=== PATIENT | female | born 1995 | race African-American/Black ===

== ENCOUNTER 2023-04-05 11:58 | Emergency (ER) | payer MEDICAID, SELFPAY ==
--- NOTE | ~2023-04-05 | US_ITS ---
CORRECTED REPORT examination description change [facility] [place] 04/06/2023 This report was recreated on 04/06/2023. Original report was EXAMINATION: US OB <= 14 weeks fetus w TV DATE: 04/05/2023 14:49 INDICATION: Abdominal pain. TECHNIQUE: Real-time transabdominal and transvaginal pelvic ultrasound was performed. COMPARISON: None. FINDINGS: TRANSABDOMINAL ULTRASOUND: The uterus measures 12.3 x 9.7 x 8.7 cm. TRANSVAGINAL ULTRASOUND: There is an intrauterine gestational sac. The crown rump length measures 6.9 cm, which correlates with an estimated gestational age of 13 weeks and 1 day(s) (+/-) 1 week(s) and 1 day(s). heart motion is identified measuring 147 beats per minute (bpm) by M-mode Doppler. There is a 1.1 cm intramural fibroid. The right ovary is not visualized. The left ovary measures 4.7 x 1.9 x 1.8 cm. There is no free fluid in the pelvis. The cervical length is 3.5 cm, which is normal. IMPRESSION: 1. Single living intrauterine gestation with estimated date of delivery of 10/10/2023. 2. Small uterine fibroid. 3. Right ovary not visualized. Reviewed, dictated and finalized at location A. MTDD IMPRESSION: 1. Single living intrauterine gestation with estimated date of delivery of 10/2023. 2. Small uterine fibroid. 3. Right ovary not visualized.
[2023-04-05 12:42] VITALS: BP 104/66; PULSE 80; RESP 16; TEMP 36.6; O2SAT 99
--- NOTE | 2023-04-05 13:41 | ED.ABDPAIN ---
HPI - Abdominal Pain General Chief Complaint: Abdominal Pain Stated Complaint: 13 weeks preg/abd pain Time Seen by Provider: 04/05/23 12:49 History of Present Illness HPI narrative: 27-year-old female presents with generalized abdominal pain, generalized weakness, and nausea x1 week. Patient currently is 13 weeks and 3 days . Patient denies having baby movement yet. Patient is a G1, P0. Patient denies urinary symptoms or vaginal bleeding. Patient's TOP EXECUTIVE is Dr. Hernandez, [facility]. Onset (ago): week(s) Associated symptoms: nausea Related Data Allergies Allergy/AdvReac Type Severity Reaction Status Date / Time chloroquine Allergy Itching Verified 04/05/23 12:46 Review of Systems Review of Systems: A 10 system review of systems was completed on the patient and is negative except for what is stated in the HPI. Nursing and ancillary documentation was reviewed. Exam Narrative: GENERAL: Well-appearing, well-nourished, and in no acute distress. HEAD: Normocephalic, atraumatic. EYES: PERRLA and EOMI. ENT: Nares clear, no rhinorrhea or epistaxis. Mucous membranes moist. NECK: Supple. CHEST: Clear to auscultation. No respiratory distress. HEART: Regular rate and rhythm. No murmur heard. Normal peripheral pulses. ABDOMEN: Soft, generalized, nondistended, normal active bowel sounds. EXTREMITIES: Normal range of motion. No edema. SKIN: Warm, dry, no rash. NEURO: No focal deficits. Alert and oriented x3. PSYCH: Normal mood and affect. Course Course Emergency Course: We will check all labs and ultrasound. IV fluids and nausea medicine Vital Signs Vital signs: Vital Signs Temperature 36.6 C 04/05/23 12:42 Pulse Rate 80 04/05/23 12:42 Respiratory Rate 16 04/05/23 12:42 Blood Pressure 104/66 04/05/23 12:42 Pulse Oximetry 99 04/05/23 12:42 Temperature 36.6 C 04/05/23 12:42 Pulse Rate 80 04/05/23 12:42 Respiratory Rate 16 04/05/23 12:42 Blood Pressure 104/66 04/05/23 12:42 Pulse Oximetry 99 04/05/23 12:42 MDM - Abdominal Pain MDM Narrative Medical decision making narrative: Labs and ultrasound were negative. Patient feeling better after fluids and Zofran. Will send home on Zofran ODT and close follow-up with TOP EXECUTIVE. Lab Data 04/05/23 13:51 04/05/23 13:51 Labs: Lab Results 04/05/23 04/05/23 Range/Units 13:51 13:51 WBC 8.3 (4.5-10.0) K/mm3 RBC 4.10 L (4.2-5.4) M/mm3 Hgb 11.6 L (12.0-15.0) g/dL Hct 35.3 L (37.0-47.0) % MCV 86.1 (80-100) fl MCH 28.3 (26-34) pg MCHC 32.9 (32-36) g/dl RDW 13.0 (11.5-14.5) % Plt Count 349 (150-375) k/mm3 MPV 10.3 (7.4-10.4) fl Immature Gran % (Auto) 0.5 (0-0.5) % Neut % (Auto) 66.5 (45.5-73.1) % Lymph % (Auto) 21.0 (18.3-44.2) % [place] % (Auto) 7.7 (2.6-8.5) % Eos % (Auto) 3.8 (0-4.4) % Baso % (Auto) 0.5 (0.2-1.2) % Lymph # (Auto) 1.75 (0.9-3.2) K/mm3 [place] # (Auto) 0.6 (0.1-0.6) K/mm3 Eos # (Auto) 0.3 (0-0.3) K/mm3 Baso # (Auto) 0.0 (0.0-0.1) K/mm3 Abs Immat Gran (auto) 0.04 H (0.00-0.031) K/mm3 Absolute Neuts (auto) 5.5 (1.3-6.7) K/mm3 Absolute Nucleated RBC 0.0 (0.0-0.012) K/mm3 Nucleated RBC % 0.0 (0.0-0.2) % Sodium 136 L (137-145) mmol/L Potassium 3.8 (3.4-5.0) mmol/L Chloride 101 (98-107) mmol/L Carbon Dioxide 26 (22-30) mmol/L Anion Gap 9 (8-16) mmol/L BUN 5 L (7-17) mg/dL Creatinine 0.40 L (0.7-1.0) mg/dL Estim Creat Clear Calc 152 ml/min Estimated GFR > 60 (59 - ) Glucose 77 (65-110) mg/dL Calcium 9.3 (8.4-10.2) mg/dL Magnesium 1.9 Cancelled (1.6-2.3) mg/dL Total Bilirubin 0.6 (0.2-1.3) mg/dL AST 31 (14-36) U/L ALT 21 (6-35) U/L Alkaline Phosphatase 66 (38-126) U/L Total Protein 8.0 (6.3-8.2) g/dL Albumin 4.6 (3.5-5.1) g/dL Lipase 46 (23-300) U/L Urine Color Yellow (Yellow) Urine
[2023-04-05] MEDS: SODIUM CHLORIDE 0.9% IV 1,000 ML 999 ML IV CONT (13:51)
[2023-04-05] MEDS: ONDANSETRON INJ 4 MG/2 ML VIAL IV PUSH (13:51)
[2023-04-05 14:06] LABS: Appearance Urine Cloudy (Clear); Bacteria Urine Rare /hpf; Bilirubin Urine Negative (Negative); Blood Urine Negative (Negative); Color Urine Yellow (Yellow); Glucose Urine UA Negative (Negative); Ketones Urine Trace mg/dL (Negative); Leukocyte Esterase Ur Trace LEU/UL (Negative); Nitrate Urine Negative (Negative); Non Pathogenic Casts 0-2; Protein Urine Negative (Negative); RBC Urine 0-2 /hpf (0-2); Specific Grav Ur 1.021 (1.001-1.035); Squamous Epithelial Cell Urine Moderate /hpf (Few); WBC Urine 0-5 /hpf; pH Urine 7.5 (5.0-9.0)
[2023-04-05 14:08] LABS: Basophils Percent Auto 0.5 % (0.2-1.2); Eosinophils Absolute Auto 0.3 K/mm3 (0-0.3); Eosinophils Percent Auto 3.8 % (0-4.4); Hematocrit 35.3 % (37.0-47.0); Hemoglobin 11.6 g/dL (12.0-15.0); Immature Granulocyte Absolute 0.04 K/mm3 (0.00-0.031); Immature Granulocyte Percent A 0.5 % (0-0.5); Lymphocytes Absolute Auto 1.75 K/mm3 (0.9-3.2); Mean Corpuscular HGB Conc 32.9 g/dl (32-36); Mean Corpuscular Hemoglobin 28.3 pg (26-34); Mean Corpuscular Volume 86.1 fl (80-100); Mean Platelet Volume 10.3 fl (7.4-10.4); Monocytes Absolute Auto 0.6 K/mm3 (0.1-0.6); Monocytes Percent Auto 7.7 % (2.6-8.5); Neutrophils Absolute Auto 5.5 K/mm3 (1.3-6.7); Neutrophils Percent Auto 66.5 % (45.5-73.1); Platelet Count Result 349 k/mm3 (150-375); White Blood Count 8.3 K/mm3 (4.5-10.0)
[2023-04-05 14:11] LABS: Alanine Aminotransferase 21 U/L (6-35); Albumin Level 4.6 g/dL (3.5-5.1); Alkaline Phosphatase 66 U/L (38-126); Anion Gap 9 mmol/L (8-16); Aspartate Amino Transferase 31 U/L (14-36); Bilirubin,Total 0.6 mg/dL (0.2-1.3); Blood Urea Nitrogen 5 mg/dL (7-17); Calcium 9.3 mg/dL (8.4-10.2); Carbon Dioxide 26 mmol/L (22-30); Chloride 101 mmol/L (98-107); Estimated CRCL calculation 152 ml/min; Estimated Glomerular Filt Rate > 60; Glucose 77 mg/dL (65-110); Lipase 46 U/L (23-300); Magnesium 1.9 mg/dL (1.6-2.3); Potassium 3.8 mmol/L (3.4-5.0); Sodium 136 mmol/L (137-145)
[2023-04-05 14:12] LABS: Add Urine Microscopic? YES
[2023-04-05 15:20] VITALS: BP 120/70; PULSE 80; RESP 16; O2SAT 98
== END 2023-04-05 15:20 | disposition home or self-care (01) ==
PROVIDERS: Emergency Provider Nurse Practitioner Family; PCP Obstetrics & Gynecology Gynecology
DX: O21.9 Vomiting of pregnancy, unspecified (principal); O26.891 Other specified pregnancy related conditions, first trimester; R53.1 Weakness; O34.11 Maternal care for benign tumor of corpus uteri, first trimester; Z3A.13 13 weeks gestation of pregnancy
CPT/HCPCS: 36415; 76801; 76817; 80053; 81001; 83690; 83735; 84702; 85025; 96361; 96374; 99284; J2405; J7030

== ENCOUNTER 2023-04-15 10:33 | Outpatient (CLI) | payer MEDICAID, SELFPAY ==
[2023-04-15 19:15] LABS: Alanine Aminotransferase 22 U/L (6-35); Aspartate Amino Transferase 35 U/L (14-36)
[2023-04-15 19:34] LABS: Basophils Percent Auto 0.5 % (0.2-1.2); Eosinophils Absolute Auto 0.4 K/mm3 (0-0.3); Eosinophils Percent Auto 4.5 % (0-4.4); Hematocrit 35.5 % (37.0-47.0); Hemoglobin 11.5 g/dL (12.0-15.0); Immature Granulocyte Absolute 0.03 K/mm3 (0.00-0.031); Immature Granulocyte Percent A 0.4 % (0-0.5); Lymphocytes Absolute Auto 1.85 K/mm3 (0.9-3.2); Mean Corpuscular HGB Conc 32.4 g/dl (32-36); Mean Corpuscular Hemoglobin 28.5 pg (26-34); Mean Corpuscular Volume 88.1 fl (80-100); Mean Platelet Volume 10.6 fl (7.4-10.4); Monocytes Absolute Auto 0.6 K/mm3 (0.1-0.6); Monocytes Percent Auto 7.6 % (2.6-8.5); Neutrophils Absolute Auto 5.5 K/mm3 (1.3-6.7); Platelet Count Result 332 k/mm3 (150-375); Red Blood Count 4.03 M/mm3 (4.2-5.4); Red Cell Distribution Width 13.2 % (11.5-14.5); White Blood Count 8.4 K/mm3 (4.5-10.0)
== END 2023-04-15 10:34 | disposition home or self-care (01) ==
LOC: ANHGOSHLAB 10:35
PROVIDERS: PCP Nurse Practitioner Family; Visit Provider Nurse Practitioner Family
DX: R10.9 Unspecified abdominal pain (principal); Z34.90 Encounter for supervision of normal pregnancy, unspecified, unspecified trimester; Z3A.00 Weeks of gestation of pregnancy not specified
CPT/HCPCS: 36415; 84450; 84460; 85025

== ENCOUNTER 2023-05-11 10:58 | Outpatient (CLI) | payer OTHER, SELFPAY ==
--- NOTE | ~2023-05-11 | US_ITS ---
EXAMINATION: US OB /maternal detail DATE: 05/11/2023 11:32 INDICATION: Second trimester anatomic survey TECHNIQUE: Real-time ultrasound of the pelvis was performed. COMPARISON: None. FINDINGS: There is a single living fetus in vertex presentation. The placenta is anterior. heart rate is 151 beats per minute (bpm). cardiac activity and movement are noted. The amniotic fluid index is subjectively normal. The following anatomy was identified as normal: 4 chamber heart 3 vessel cord cord insertion kidneys urinary bladder stomach spine diaphragm ventricles cisterna magna cerebellum The following biometric data were obtained: Biparietal diameter (BPD): 4.5 cm; head circumference (HC): 16.8 cm; abdominal circumference (AC): 13 .3 cm; femur length (FL): 3.1 cm. These measurements are concordant. Estimated weight is 283 g +/- 42 g, which correlates with the 94th percentile when 10/02/2023 is used as estimated date of delivery. As single measurements, these parameters are each equal to the following estimated gestational ages w ith ranges of +/- 2 standard deviations: BPD: 19 weeks 5 days +/- 1 weeks 5 days. HC: 19 weeks 3 days +/- 1 weeks 3 days. AC: 18 weeks 6 days +/- 2 weeks 0 days. FL: 19 weeks 5 days +/- 1 weeks 6 days. estimated gestational age based solely on measurements from this exam is 19 weeks 3 days +/- 1 weeks 3 days. IMPRESSION: 1. Single living fetus in vertex presentation. 2. Estimated weight is 283 g +/- 42 g, which correlates with the 94th percentile when 10/02/2023 is used as estimated date of delivery. Reviewed, dictated and finalized at location A. IMPRESSION: 1. Single living fetus in vertex presentation. 2. Estimated weight is 283 g +/- 42 g, which correlates with the 94th per centile when 10/02/2023 is used as estimated date of delivery.
== END 2023-05-11 10:59 | disposition home or self-care (01) ==
PROVIDERS: PCP Nurse Practitioner Family; Visit Provider Advanced Practice Midwife
DX: Z36.9 Encounter for antenatal screening, unspecified (principal); Z3A.19 19 weeks gestation of pregnancy
CPT/HCPCS: 76805

== ENCOUNTER 2024-01-14 14:04 | Emergency (ER) | payer OTHER, SELFPAY ==
--- NOTE | ~2024-01-14 | US_ITS ---
EXAMINATION: US pelvic complete DATE: 01/14/2024 19:35 INDICATION: bleeding, looking for retained products TECHNIQUE: Multiple transabdominal and endovaginal sonographic images of the pelvis were obtained. COMPARISON: None. FINDINGS: Uterus: 10.7 x 5.4 x 7.6 cm. Endometrial complex measures 7 mm. Subtle, 6 cm hypoechoic and echogenic focus in the endometrium, with the suggestion of vascular flow (images 21 and 22). Right Ovary: 2.6 x 1.0 x 2.2 cm. Vascular flow is present. No adnexal mass Left Ovary: 3.9 x 1.7 x 3.1 cm. Vascular flow is present. No adnexal mass There is no free fluid in the pelvis. IMPRESSION: 6 mm endometrial focus, with the suggestion of vascular flow, may represent retained products, submuc osal fibroid, or endometrial polyp. Consider gynecology consultation and sonohysterography for furthe r evaluation. Reviewed, dictated and finalized at location [facility] IMPRESSION: 6 mm endometrial focus, with the suggestion of vascular flow, may represent ret ained products, submucosal fibroid, or endometrial polyp. Consider gynecology c onsultation and sonohysterography for further evaluation.
[2024-01-14 14:26] VITALS: BP 108/64; PULSE 74; RESP 19; TEMP 37.2; O2SAT 100
--- NOTE | 2024-01-14 17:36 | ED.FEMALEGU ---
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 Pt had a vaginal delivery on 10/09/23 at [facility] in [place]. OBGYN is Dr. Whalen. States she began having vaginal bleeding yesterday and is passing clots. States she is unsure if this is her first period since her delivery, but is concerned bc her flow is heavier than normal. States she is having to changer her pad q2 hours. Reports abdominal cramping yesterday none today. Denies chest pain, dyspnea, fever, abdominal pain, n/v. Reports lightheadedness and headache. GENERAL: Well-appearing, well-nourished, and in no acute distress. HEAD: Normocephalic, atraumatic. CHEST: Clear to auscultation. ?No respiratory distress. HEART: Regular rate and rhythm.? NEURO: ?Alert and oriented x3. Patient screened in triage and initial orders placed.? ?Additional care and disposition to be based upon?diagnostic testing and treatment. <Saritha Siegel PA-C - Last Filed: 01/14/24 17:45> Related Data Allergies/Adverse reactions: Allergies Allergy/AdvReac Type Severity Reaction Status Date / Time chloroquine Allergy Itching Verified 01/14/24 18:23 <Saritha Siegel PA-C - Last Filed: 01/14/24 17:45> PMFSH Past Medical History Medical History: Medical History Fatigue Pain in the abdomen Stomach ulcer <SUKHWINDER Pratt Last Filed: 01/14/24 17:45> Social History Social History: Social History Smoking status: Never smoker Alcohol intake: never Substance use: never Substance use type: does not use Lack of Transportation: No Lack of Food: Never True Current Housing: I Have Housing Concerned About Future Housing: No Difficulty Paying Gas/Electric Bills: No Difficulty Paying for Meds: No Currently Unemployed: No Education: Bachelor's Degree Difficulty w/ Childcare or Family Care: No Living arrangements: alone Occupation/Education: student Gender identity (if verbalized by the patient): Female Agree to blood products: Yes <Saritha Siegel PA-C - Last Filed: 01/14/24 17:45> Course Vital Signs Vital signs: Vital Signs Temperature 99 F 01/14/24 14:26 Pulse Rate 74 01/14/24 14:26 Respiratory Rate 19 01/14/24 14:26 Blood Pressure 108/64 01/14/24 14:26 Pulse Oximetry 100 01/14/24 14:26 Oxygen Delivery Room Air 01/14/24 14:26 Temperature 99 F 01/14/24 14:26 Pulse Rate 66 01/14/24 18:22 Respiratory Rate 16 01/14/24 18:22 Blood Pressure 100/67 01/14/24 18:22 Pulse Oximetry 100 01/14/24 18:22 Oxygen Delivery Room Air 01/14/24 14:26 <Saritha Siegel PA-C - Last Filed: 01/14/24 17:45> Vital Signs Temperature 99 F 01/14/24 14:26 Pulse Rate 74 01/14/24 14:26 Respiratory Rate 19 01/14/24 14:26 Blood Pressure 108/64 01/14/24 14:26 Pulse Oximetry 100 01/14/24 14:26 Oxygen Delivery Room Air 01/14/24 14:26 Temperature 99 F 01/14/24 14:26 Pulse Rate 66 01/14/24 18:22 Respiratory Rate 16 01/14/24 18:22 Blood Pressure 100/67 01/14/24 18:22 Pulse Oximetry 100 01/14/24 18:22 Oxygen Delivery Room Air 01/14/24 14:26 <Madan Means MD - Last Filed: 01/14/24 21:29> MDM - Female Genitourinary MDM Narrative Medical decision making narrative: -Course: 20-year-old female presenting with Vaginal bleeding 3 months . This is her 1st menstrual period which is typically quite heavy. Pelvic exam showed minimal bleeding. Pelvic ultrasound sh
--- NOTE | 2024-01-14 17:40 | ECG_ITS ---
Measurements Intervals [place] Rate: 73 P: 30 LA: 152 QRS: 8 QRSD: 88 T: -6 QT: 397 QTc: 439 Interpretive Statements SINUS RHYTHM VOLTAGE CRITERIA FOR LVH [MEETS CRITERIA IN ONE OF: R(aVL), S(V1), R(V5), R(V5/V6)+S(V1)] NONSPECIFIC T-WAVE ABNORMALITY BORDERLINE ECG NO PREVIOUS ECG AVAILABLE FOR COMPARISON Electronically Signed On 01-15-2024 8:16:02 FOOD AND NUTRITION PROFESSOR by Jac Estrada M.D.
[2024-01-14 17:59] LABS: Basophils Absolute Auto 0.1 K/mm3 (0.0-0.1); Basophils Percent Auto 0.8 % (0.2-1.2); Eosinophils Absolute Auto 0.4 K/mm3 (0-0.3); Eosinophils Percent Auto 6.4 % (0-4.4); Hematocrit 39.2 % (37.0-47.0); Hemoglobin 12.4 g/dL (12.0-15.0); Immature Granulocyte Absolute 0.01 K/mm3 (0.00-0.031); Immature Granulocyte Percent A 0.2 % (0-0.5); Lymphocytes Absolute Auto 2.52 K/mm3 (0.9-3.2); Lymphocytes Percent Auto 39.1 % (18.3-44.2); Mean Corpuscular HGB Conc 31.6 g/dl (32-36); Mean Corpuscular Hemoglobin 27.7 pg (26-34); Mean Corpuscular Volume 87.5 fl (80-100); Mean Platelet Volume 10.2 fl (7.4-10.4); Monocytes Absolute Auto 0.7 K/mm3 (0.1-0.6); Monocytes Percent Auto 10.4 % (2.6-8.5); Neutrophils Absolute Auto 2.8 K/mm3 (1.3-6.7); Neutrophils Percent Auto 43.1 % (45.5-73.1); Platelet Count Result 348 k/mm3 (150-375); Red Blood Count 4.48 M/mm3 (4.2-5.4); Red Cell Distribution Width 13.9 % (11.5-14.5); White Blood Count 6.5 K/mm3 (4.5-10.0)
[2024-01-14 18:00] LABS: Alanine Aminotransferase 21 U/L (6-35); Albumin Level 4.3 g/dL (3.5-5.1); Alkaline Phosphatase 95 U/L (38-126); Anion Gap 8 mmol/L (8-16); Aspartate Amino Transferase 27 U/L (14-36); Bilirubin,Total 0.5 mg/dL (0.2-1.3); Blood Urea Nitrogen 13 mg/dL (7-17); Calcium 9.5 mg/dL (8.4-10.2); Carbon Dioxide 22 mmol/L (22-30); Chloride 108 mmol/L (98-107); Estimated CRCL calculation 120 ml/min; Estimated Glomerular Filt Rate > 60; Glucose 88 mg/dL (65-110); Potassium 3.9 mmol/L (3.4-5.0); Sodium 138 mmol/L (137-145)
[2024-01-14 18:04] LABS: Prothrombin Time 13.4 Seconds (11.1-14.7)
[2024-01-14 18:05] LABS: Partial Thromboplastin Time 29.4 SECONDS (22.3-36.8)
[2024-01-14 18:22] VITALS: BP 100/67; PULSE 66; RESP 16; O2SAT 100
[2024-01-14 20:04] LABS: Bacteria Urine None Seen /hpf; Non Pathogenic Casts 0-2; RBC Urine >100 /hpf (0-2); Squamous Epithelial Cell Urine Occasional /hpf (Few)
[2024-01-14 20:06] LABS: Appearance Urine Cloudy (Clear); Bilirubin Urine 1+ (Negative); Blood Urine 3+ (Negative); Glucose Urine UA Negative (Negative); Ketones Urine Trace mg/dL (Negative); Leukocyte Esterase Ur 1+ LEU/UL (Negative); Nitrate Urine Negative (Negative); Protein Urine 1+ mg/dL (Negative); Specific Grav Ur 1.022 (1.001-1.035); pH Urine 5.5 (5.0-9.0)
[2024-01-14 20:08] LABS: Color Urine Dark Yellow (Yellow)
[2024-01-14 20:09] LABS: Add Urine Microscopic? YES
--- NOTE | 2024-01-14 21:25 | PC.NURSE ---
Pt not found in room. Pt did not notify RN or MD of exit. Pt left without receiving d/c instructions.
== END 2024-01-14 21:30 | disposition home or self-care (01) ==
PROVIDERS: Physician Assistant; Emergency Provider Emergency Medicine; PCP Nurse Practitioner Family
DX: N92.0 Excessive and frequent menstruation with regular cycle (principal); R94.31 Abnormal electrocardiogram [ECG] [EKG]
CPT/HCPCS: 36415; 76856; 80053; 81001; 81025; 85025; 85610; 85730; 87086; 93005; 99284